=== PATIENT | female | born 1960 | race Two or more races ===

== ENCOUNTER 2025-08-26 11:01 | Outpatient (CLI) | payer MEDICAID, OTHER ==
[2025-08-26] MEDS ORDERED: ALBUTEROL SULF 2.5 MG/0.5ML(0.5%) NEB SOLN ONE (11:33)
--- NOTE | 2025-08-28 15:04 | DVHNC2 ---
Procedure - Date of Service: August 26, 2025 6 Minutes walk test interpretation: Completed 6 minutes of ambulation. Moderate reduction in distance walked. Expected heart rate achieved. No significant desaturation with exertion. Procedure Code: CPT 51060-83 Visit Coding Pulmonary Billing Provider: MARGARITA ABDI MD Date of Service if different f: Aug 26, 2025 Common Visit Codes: PROCEDURE ONLY Pulmonary Procedure Codes: 41865-37- PULMONARY STRESS TESTING MARGARITA ABDI MD Aug 28, 2025 15:04
== END 2025-08-26 17:00 | disposition home or self-care (01) ==
LOC: RT 11:01
PROVIDERS: ATTEND Internal Medicine Pulmonary Disease
DX: R06.00 Dyspnea, unspecified (principal); R05.3 Chronic cough
CPT/HCPCS: 94618